=== PATIENT | male | born 1950 | race Caucasian/White ===

== ENCOUNTER 2016-04-15 10:13 | Outpatient (CLI) | payer OTHER | END 2016-04-15 17:54 | disposition home or self-care (01) | LOC: SRD 10:13 | PROVIDERS: ATTEND Internal Medicine | DX: I71.9 Aortic aneurysm of unspecified site, without rupture (principal); I70.90 Unspecified atherosclerosis; Z87.442 Personal history of urinary calculi | CPT/HCPCS: 76700-TC; 93880 ==

== ENCOUNTER 2018-01-09 08:46 | Outpatient (CLI) | payer OTHER | END 2018-01-09 20:45 | disposition home or self-care (01) | LOC: SMI 08:46 | PROVIDERS: ATTEND Internal Medicine | DX: M48.02 Spinal stenosis, cervical region (principal); M50.20 Other cervical disc displacement, unspecified cervical region; M47.892 Other spondylosis, cervical region | CPT/HCPCS: 72141 ==